=== PATIENT | female | born 1955 | race Caucasian/White ===

== ENCOUNTER 2020-03-01 15:45 | Outpatient (CLI) | payer MEDICARE, OTHER, SELFPAY ==
--- NOTE | ~2020-03-01 | MM_ITS ---
EXAMINATION: MM screening alexandria BI w dorene HISTORY: Screening TECHNIQUE: Craniocaudal and mediolateral oblique 3-D tomosynthesis images were obtained and synthetic 2-D images were generated. CAD analysis was submitted and interpreted. COMPARISON: Comparison to multiple prior studies sequentially, with oldest reviewed study dated 02/03. BREAST PARENCHYMAL COMPOSITION: The breasts are heterogeneously dense, which may obscure small masses . FINDINGS: There are surgical changes in the left breast, consistent with lumpectomy. There is no mamm ographic evidence for malignancy in the right breast. There is focal asymmetry at the lumpectomy site in the upper outer quadrant of the left breast, not definitely see on prior study. IMPRESSION: 1. Focal left breast asymmetry. 2. Additional mammographic views and possible breast ultrasound are recommended. BI-RADS Category 0: Incomplete: Needs additional imaging evaluation. Reviewed, dictated and finalized at location A. IMPRESSION: 1. Focal left breast asymmetry. 2. Additional mammographic views and possible breast ultrasound are recommended . BI-RADS Category 0: Incomplete: Needs additional imaging evaluation.
== END 2020-03-01 15:46 | disposition home or self-care (01) ==
LOC: ANHIMG 15:50
PROVIDERS: PCP Internal Medicine; Visit Provider Internal Medicine Medical Oncology
DX: Z12.31 Encounter for screening mammogram for malignant neoplasm of breast (principal); R92.8 Other abnormal and inconclusive findings on diagnostic imaging of breast
CPT/HCPCS: 77063; 77067

== ENCOUNTER 2020-04-03 09:48 | Outpatient (CLI) | payer MEDICARE, OTHER, SELFPAY ==
--- NOTE | ~2020-04-03 | MMUS_ITS ---
EXAMINATION: MM diagnostic mammo unilat LT, US breast LT limited HISTORY: History of breast cancer. Follow-up breast asymmetry. TECHNIQUE: Additional 3-D tomosynthesis images of the left breast were performed and synthetic 2-D im ages were generated. CAD analysis was submitted and interpreted. High resolution left breast ultrasou nd was performed. COMPARISON: 03/01/2020 BREAST PARENCHYMAL COMPOSITION: The breasts are heterogenously dense, which may obscure small masses. FINDINGS: MAMMOGRAPHIC FINDINGS: There are no suspicious masses, calcifications or architectural distortion in the left breast to sugg est malignancy. The area of asymmetry noted on prior examination is less apparent with spot compressi on views. ULTRASOUND: Limited left breast ultrasound: There is heterogeneous echogenic soft tissue in the area of scarring from previous surgery with poste rior shadowing. No discrete mass identified. IMPRESSION: 1. No evidence for malignancy in the left breast. Postsurgical scarring without significant change al lowing for differences of technique. 2. Routine yearly screening mammogram and regular clinical breast examination are recommended. BI-RADS Category 2: Benign finding(s). Reviewed, dictated and finalized at location A. IMPRESSION: 1. No evidence for malignancy in the left breast. Postsurgical scarring without significant change allowing for differences of technique. 2. Routine yearly screening mammogram and regular clinical breast examination a re recommended. BI-RADS Category 2: Benign finding(s).
== END 2020-04-03 09:49 | disposition home or self-care (01) ==
LOC: ANHIMG 09:51
PROVIDERS: PCP Internal Medicine; Visit Provider Obstetrics & Gynecology
DX: R92.8 Other abnormal and inconclusive findings on diagnostic imaging of breast (principal)
CPT/HCPCS: 76642; 77065

== ENCOUNTER 2020-04-10 09:30 | Outpatient (CLI) | payer MEDICARE, OTHER, SELFPAY ==
--- NOTE | ~2020-04-10 | CT_ITS ---
EXAMINATION: CT lung screening DATE: 04/10/2020 10:00 INDICATION: History of nicotine dependence TECHNIQUE: Computed tomography (CT) of the chest was performed without intravenous contrast. The dose -length product was 55.69 mGy-cm. Automated exposure control and iterative reconstruction technique w ere employed. COMPARISON: CT dated 04/16/2019 FINDINGS: Heart size normal. No thoracic lymphadenopathy. There are small hypodense lesions of the th yroid gland, largest measuring approximately 11 mm, unchanged. No significant pleural or pericardial effusion. There are calcifications of the pancreas, consistent with chronic pancreatitis. There are s urgical changes of left axillary lymph node dissection. There are stable coarse reticular opacities o f the left upper lobe anteriorly, possibly from previous radiation therapy. There is a 3 mm right upp er lobe nodule, image 30. There is a 2-3 mm right lower lobe nodule, image 66. There is a stable 4 mm left lower lobe nodule, image 67. No new pulmonary nodules or masses. There is atherosclerosis of th e aorta and coronary arteries. Stable superior endplate compression deformity of L2. IMPRESSION: 1. Lung-RADS category 2: Benign appearance or behavior. Continue annual screening with noncontrast lo w-dose chest CT in 12 months. Reviewed, dictated and finalized at location B. IMPRESSION: 1. Lung-RADS category 2: Benign appearance or behavior. Continue annual screeni ng with noncontrast low-dose chest CT in 12 months.
== END 2020-04-10 09:31 | disposition home or self-care (01) ==
PROVIDERS: PCP Internal Medicine; Visit Provider Internal Medicine
DX: Z12.2 Encounter for screening for malignant neoplasm of respiratory organs (principal); Z87.891 Personal history of nicotine dependence
CPT/HCPCS: G0297

== ENCOUNTER 2020-04-14 09:08 | Outpatient (CLI) | payer MEDICARE, OTHER, SELFPAY ==
[2020-04-14 09:35] LABS: Basophils Absolute Auto 0.1 K/mm3 (0.0-0.1); Basophils Percent Auto 0.8 % (0.2-1.2); Eosinophils Absolute Auto 0.1 K/mm3 (0-0.3); Eosinophils Percent Auto 0.8 % (0-4.4); Hematocrit 42.6 % (37.0-47.0); Hemoglobin 13.9 g/dL (12.0-15.0); Immature Granulocyte Absolute 0.03 K/mm3 (0.00-0.031); Immature Granulocyte Percent A 0.4 % (0-0.5); Lymphocytes Absolute Auto 1.95 K/mm3 (0.9-3.2); Lymphocytes Percent Auto 26.5 % (18.3-44.2); Mean Corpuscular HGB Conc 32.6 g/dl (32-36); Mean Corpuscular Hemoglobin 31.3 pg (26-34); Mean Corpuscular Volume 95.9 fl (80-100); Mean Platelet Volume 10.8 fl (7.4-10.4); Monocytes Absolute Auto 0.7 K/mm3 (0.1-0.6); Neutrophils Absolute Auto 4.5 K/mm3 (1.3-6.7); Neutrophils Percent Auto 61.5 % (45.5-73.1); Platelet Count Result 279 k/mm3 (150-375); Red Blood Count 4.44 M/mm3 (4.2-5.4); White Blood Count 7.4 K/mm3 (4.5-10.0)
[2020-04-14 09:46] LABS: Hemoglobin A1C 5.5 % (<5.7)
[2020-04-14 09:48] LABS: Alanine Aminotransferase 16 U/L (4-35); Albumin Level 4.3 g/dL (3.5-5.1); Alkaline Phosphatase 69 U/L (38-126); Anion Gap 4 mmol/L (8-16); Aspartate Amino Transferase 29 U/L (14-36); Bilirubin,Total 0.5 mg/dL (0.2-1.3); Blood Urea Nitrogen 18 mg/dL (7-17); Calcium 9.7 mg/dL (8.4-10.2); Carbon Dioxide 31 mmol/L (22-30); Chloride 106 mmol/L (98-107); Cholesterol 134 mg/dL (0-200); Estimated Glomerular Filt Rate > 60; Glucose 95 mg/dL (65-105); HDL Direct 49 mg/dL; Potassium 4.3 mmol/L (3.4-5.0); Sodium 141 mmol/L (137-145); Triglycerides 64 mg/dL (<150)
[2020-04-14 09:59] LABS: LDL Cholesterol Direct 59 mg/dL
[2020-04-14 10:08] LABS: Creatinine Urine 58.8 mg/dL
[2020-04-14 10:37] LABS: MALB Creatinine Ratio < 10.2 mg/g (0-30); Microalbumin Urine Random < 6.0 mg/L (0-16.7)
== END 2020-04-14 09:09 | disposition home or self-care (01) ==
LOC: ANHLAB 09:12
PROVIDERS: PCP Internal Medicine; Visit Provider Internal Medicine
DX: R73.01 Impaired fasting glucose (principal); I10 Essential (primary) hypertension; M81.0 Age-related osteoporosis without current pathological fracture; E78.2 Mixed hyperlipidemia; I25.10 Atherosclerotic heart disease of native coronary artery without angina pectoris
CPT/HCPCS: 36415; 80053; 80061; 82043; 83036; 84443; 85025

== ENCOUNTER 2021-01-31 07:52 | Outpatient (CLI) | payer MEDICARE, OTHER, SELFPAY ==
[2021-01-31 08:19] LABS: Basophils Absolute Auto 0.1 K/mm3 (0.0-0.1); Basophils Percent Auto 0.6 % (0.2-1.2); Eosinophils Absolute Auto 0.1 K/mm3 (0-0.3); Eosinophils Percent Auto 1.3 % (0-4.4); Hematocrit 42.7 % (37.0-47.0); Hemoglobin 13.7 g/dL (12.0-15.0); Immature Granulocyte Absolute 0.03 K/mm3 (0.00-0.031); Immature Granulocyte Percent A 0.4 % (0-0.5); Lymphocytes Absolute Auto 2.11 K/mm3 (0.9-3.2); Lymphocytes Percent Auto 27.1 % (18.3-44.2); Mean Corpuscular HGB Conc 32.1 g/dl (32-36); Mean Corpuscular Hemoglobin 30.6 pg (26-34); Mean Corpuscular Volume 95.5 fl (80-100); Mean Platelet Volume 10.9 fl (7.4-10.4); Monocytes Absolute Auto 0.8 K/mm3 (0.1-0.6); Monocytes Percent Auto 10.8 % (2.6-8.5); Neutrophils Absolute Auto 4.7 K/mm3 (1.3-6.7); Neutrophils Percent Auto 59.8 % (45.5-73.1); Platelet Count Result 230 k/mm3 (150-375); Red Blood Count 4.47 M/mm3 (4.2-5.4); Red Cell Distribution Width 13.9 % (11.5-14.5); White Blood Count 7.8 K/mm3 (4.5-10.0)
[2021-01-31 08:34] LABS: Alanine Aminotransferase 20 U/L (4-35); Albumin Level 4.1 g/dL (3.5-5.1); Alkaline Phosphatase 69 U/L (38-126); Anion Gap 6 mmol/L (8-16); Aspartate Amino Transferase 30 U/L (14-36); Bilirubin,Total 0.2 mg/dL (0.2-1.3); Blood Urea Nitrogen 19 mg/dL (7-17); Calcium 9.5 mg/dL (8.4-10.2); Carbon Dioxide 27 mmol/L (22-30); Chloride 103 mmol/L (98-107); Estimated Glomerular Filt Rate > 60; Glucose 100 mg/dL (65-110); Potassium 4.1 mmol/L (3.4-5.0); Sodium 136 mmol/L (137-145)
[2021-01-31 09:26] LABS: Hemoglobin A1C 5.9 % (<5.7)
[2021-01-31 09:31] LABS: Creatinine Urine 69.5 mg/dL
[2021-01-31 09:36] LABS: MALB Creatinine Ratio 11.4 mg/g (0-30); Microalbumin Urine Random 7.9 mg/L (0-16.7)
[2021-01-31 10:44] LABS: Vitamin D 25 Hydroxy 52.2 ng/mL
== END 2021-01-31 07:53 | disposition home or self-care (01) ==
PROVIDERS: PCP Internal Medicine; Visit Provider Internal Medicine
DX: E55.9 Vitamin D deficiency, unspecified (principal); I10 Essential (primary) hypertension; M81.0 Age-related osteoporosis without current pathological fracture; Z72.0 Tobacco use; R73.01 Impaired fasting glucose; E78.2 Mixed hyperlipidemia
CPT/HCPCS: 36415; 80053; 82043; 82306; 83036; 84443; 85025

== ENCOUNTER 2021-04-07 07:13 | Outpatient (CLI) | payer MEDICARE, SELFPAY ==
--- NOTE | ~2021-04-07 | MM_ITS ---
EXAMINATION: MM screening [place]ria BI w dorene HISTORY: Screening mammogram TECHNIQUE: Craniocaudal and mediolateral oblique 3-D tomosynthesis images were obtained and synthetic 2-D images were generated. CAD analysis was submitted and interpreted. COMPARISON: 04/03/2020 diagnostic left mammogram and limited left breast ultrasound 03/01 bilateral digital screening mammogram 02/15/2019 diagnostic left mammogram and limited left breast ultrasound 02/09/2019, 02/05/2018 bilateral digital screening mammogram examinations BREAST PARENCHYMAL COMPOSITION: The breasts are heterogeneously dense, which may obscure small masses . FINDINGS: There is stable architectural distortion, retraction and surgical clip in the upper mid to outer left breast consistent with history of prior partial left mastectomy for breast cancer. There is no evidence of suspicious mass, calcification, or architectural distortion to suggest malign danya in either breast. There has been no suspicious interval change. IMPRESSION: 1. No mammographic evidence of malignancy. 2. Recommend routine screening mammography in one year. BI-RADS Category 2: Benign finding(s). Reviewed, dictated and finalized at location A.
== END 2021-04-07 07:14 | disposition home or self-care (01) ==
LOC: ANHIMG 07:14
PROVIDERS: PCP Internal Medicine; Visit Provider Internal Medicine Medical Oncology
DX: Z12.31 Encounter for screening mammogram for malignant neoplasm of breast (principal)
CPT/HCPCS: 77063; 77067

== ENCOUNTER 2021-04-19 14:45 | Outpatient (CLI) | payer MEDICARE, OTHER, SELFPAY ==
--- NOTE | ~2021-04-19 | CT_ITS ---
EXAMINATION:CT lung screening DATE: 04/19/2021 15:03 INDICATION: Personal history of tobacco dependence. Current smoker. TECHNIQUE: Computed tomography (CT) of the chest was performed without intravenous contrast. Automate d exposure control and iterative reconstruction technique were employed. The dose-length product (DLP ) was 62.54 mGy-cm. COMPARISON: Chest CT 04/10/2020 FINDINGS: There is mild scarring at the lung apices. There is peripheral radiation fibrosis in almas lateral aspect of left lung. There are mild groundglass opacities in the inferior lungs with septal t hickening. There is mild bronchiectasis in right middle lobe. A calcified left lung nodule is consist ent with old granulomatous disease. Again seen are a few nodules in the lungs measuring up to 4 mm in left lower lobe. No pleural effusion. There are surgical clips in left axilla. There are changes of lumpectomy in left breast. The heart size is normal. No pericardial effusion. There are coronary melinda ry calcifications. There is a 12 mm nodule in left thyroid lobe, likely not clinically significant. T here are calcifications of the pancreas, consistent with chronic pancreatitis. There is mild thoracic spondylosis. IMPRESSION: 1. Lung-RADS category 2: Benign appearance or behavior. Continue annual screening with noncontrast lo w-dose chest CT in 12 months. Reviewed, dictated and finalized at location A. IMPRESSION: 1. Lung-RADS category 2: Benign appearance or behavior. Continue annual screeni ng with noncontrast low-dose chest CT in 12 months.
== END 2021-04-19 14:46 | disposition home or self-care (01) ==
LOC: ANHIMG 14:50
PROVIDERS: PCP Internal Medicine; Visit Provider Internal Medicine
DX: Z87.891 Personal history of nicotine dependence (principal)
CPT/HCPCS: 71271; 77080

== ENCOUNTER 2021-04-19 16:42 | Outpatient (CLI) | payer MEDICARE, OTHER, SELFPAY ==
--- NOTE | ~2021-04-19 | DEXA_ITS ---
Bone Density Report Name: Digna Nolan Age: 66 Sex: Female Ethnicity: White Date of : 1955 Indication: postmenopausal osteoporosis; monitoring treatment; height loss; cancer; Referring Provider: Gaston, Kaveh Stafford Study: Bone densitometry was performed. Exam Date: April 19, 2021 Accession number: [id number] Bone Density: Region BMD T-score Z-score Classification AP Spine (L1-L4) 0.725 -2.9 -1.0 Osteoporosis Femoral Neck (Left) 0.558 -2.6 -1.0 Osteoporosis Total Hip (Left) 0.735 -1.7 -0.4 Osteopenia Total Hip Bilateral Avg 0.723 -1.8 -0.5 Osteopenia Femoral Neck (Right) 0.520 -3.0 -1.3 Osteoporosis Total Hip (Right) 0.709 -1.9 -0.6 Osteopenia World Health Organization criteria for BMD impression classify patients as: Normal (T-score at or above -1.0), Osteopenia (T-score between -1.0 and -2.5), or Osteoporosis (T-score at or below -2.5). 10-year Fracture Risk: FRAX not reported because: Some T-score for Spine Total or Hip Total or Femoral Neck at or below -2.5 Treated for osteoporosis Previous Exams: Region Exam Age BMD T-score BMD Change BMD Change Date g/cm2 vs Baseline vs Previous AP Spine(L1-L4) 04/19/2021 66 0.725 -2.9 -0.068(-8.5%)# 0.005(0.7%) 03/12/2019 63 0.720 -3.0 -0.073(-9.1%)# 0.036(5.2%)* 11/26/2016 61 0.685 -3.3 -0.108(-13.6%) -0.015(-2.2%) 11/19/2014 59 0.700 -3.2 -0.093(-11.7%) -0.063(-8.3%)# 03/25/2009 54 0.763 -2.6 -0.030(-3.7%)* -0.030(-3.7%)* 02/23/2005 49 0.793 -2.3 Total Hip(Left) 04/19/2021 66 0.735 -1.7 -0.076(-9.3%)# 0.044(6.4%)* 03/12/2019 63 0.691 -2.1 -0.120(-14.8%) -0.002(-0.3%) 11/26/2016 61 0.693 -2.0 -0.118(-14.6%) -0.006(-0.8%) 11/19/2014 59 0.699 -2.0 -0.113(-13.9%) -0.101(-12.7%) 03/25/2009 54 0.800 -1.2 -0.011(-1.4%) -0.011(-1.4%) 02/23/2005 49 0.811 -1.1 Total Hip(Right) 04/19/2021 66 0.709 -1.9 -0.113(-13.8%) -0.008(-1.1%) 03/12/2019 63 0.717 -1.8 -0.105(-12.8%) 0.005(0.7%) 11/26/2016 61 0.711 -1.9 -0.111(-13.5%) 0.000(0.0%) 11/19/2014 59 0.711 -1.9 -0.111(-13.5%) -0.118(-14.2%) 03/25/2009 54 0.829 -0.9 0.007(0.9%) 0.007(0.9%) 02/23/2005 49 0.822 -1.0 *Denotes significance at 95% confidence level, LSC for AP Spine = 0.022 g/cm2, LSC for Total Hip = 0.027 g/cm2 Clinical Information Provided by Patient: Smokes Is being treated for osteoporosis Has used the following medications: Calcium Has the following medical conditions: Cancer
== END 2021-04-19 16:43 | disposition home or self-care (01) ==
PROVIDERS: PCP Internal Medicine; Visit Provider Internal Medicine Medical Oncology
DX: C50.212 Malignant neoplasm of upper-inner quadrant of left female breast (principal); Z17.0 Estrogen receptor positive status [ER+]; Z79.811 Long term (current) use of aromatase inhibitors; M81.0 Age-related osteoporosis without current pathological fracture; M85.852 Other specified disorders of bone density and structure, left thigh; M85.851 Other specified disorders of bone density and structure, right thigh
CPT/HCPCS: 77080

== ENCOUNTER 2021-09-19 09:01 | Outpatient (CLI) | payer MEDICARE, OTHER, SELFPAY ==
[2021-09-19 09:50] LABS: Alanine Aminotransferase 20 U/L (4-35); Albumin Level 4.1 g/dL (3.5-5.1); Alkaline Phosphatase 77 U/L (38-126); Anion Gap 5 mmol/L (8-16); Aspartate Amino Transferase 35 U/L (14-36); Bilirubin,Total 0.2 mg/dL (0.2-1.3); Blood Urea Nitrogen 15 mg/dL (7-17); Calcium 8.8 mg/dL (8.4-10.2); Carbon Dioxide 26 mmol/L (22-30); Chloride 108 mmol/L (98-107); Cholesterol 128 mg/dL (0-200); Estimated Glomerular Filt Rate > 60; Glucose 96 mg/dL (65-110); HDL Direct 41 mg/dL; Potassium 4.1 mmol/L (3.4-5.0); Sodium 139 mmol/L (137-145); Triglycerides 78 mg/dL (<150)
[2021-09-19 10:01] LABS: LDL Cholesterol Direct 59 mg/dL
[2021-09-19 10:40] LABS: Creatinine Urine 18.1 mg/dL
[2021-09-19 10:55] LABS: Hemoglobin A1C 5.5 % (<5.7)
[2021-09-19 11:00] LABS: Microalbumin Urine Random < 6.0 mg/L (0-16.7)
== END 2021-09-19 09:02 | disposition home or self-care (01) ==
LOC: ANHLAB 09:03
PROVIDERS: PCP Internal Medicine; Visit Provider Internal Medicine
DX: E78.2 Mixed hyperlipidemia (principal); F41.9 Anxiety disorder, unspecified; I10 Essential (primary) hypertension; R73.01 Impaired fasting glucose
CPT/HCPCS: 36415; 80053; 80061; 82043; 83036

== ENCOUNTER 2021-10-10 12:58 | Outpatient (CLI) | payer MEDICARE, OTHER, SELFPAY | END 2021-10-10 12:59 | disposition home or self-care (01) | LOC: ANHAUDIO 13:00 | PROVIDERS: PCP Internal Medicine; Visit Provider Nurse Practitioner | DX: H91.90 Unspecified hearing loss, unspecified ear (principal) | CPT/HCPCS: 92557; 92567 ==

== ENCOUNTER 2021-12-19 14:12 | Outpatient (CLI) | payer MEDICARE, OTHER, SELFPAY ==
[2021-12-19 16:36] LABS: Albumin Level 4.3 g/dL (3.5-5.1); Anion Gap 5 mmol/L (8-16); Blood Urea Nitrogen 9 mg/dL (7-17); Calcium 8.8 mg/dL (8.4-10.2); Carbon Dioxide 28 mmol/L (22-30); Chloride 109 mmol/L (98-107); Estimated Glomerular Filt Rate > 60; Glucose 116 mg/dL (65-110); Phosphorus 2.9 mg/dL (2.5-4.5); Potassium 3.6 mmol/L (3.4-5.0); Sodium 142 mmol/L (137-145)
== END 2021-12-19 14:13 | disposition home or self-care (01) ==
LOC: ANHWCLAB 14:16
PROVIDERS: PCP Internal Medicine; Visit Provider Internal Medicine Endocrinology, Diabetes & Metabolism
DX: M81.0 Age-related osteoporosis without current pathological fracture (principal); R79.89 Other specified abnormal findings of blood chemistry
CPT/HCPCS: 36415; 80069; 82306; 83970

== ENCOUNTER 2022-01-04 09:51 | Outpatient (CLI) | payer MEDICARE, OTHER, SELFPAY ==
[2022-01-04 11:40] LABS: Creatinine Urine 31.8 mg/dL
[2022-01-04 12:01] LABS: Creatinine 24 Hour Urine 0.7 gm/24 (0.8-1.8); Total Volume 24 Hour Urine 2400 ml
[2022-01-10 19:20] LABS: Total Volume 2400 mL; Urine Calcium 3.6 mg/dL
== END 2022-01-04 09:52 | disposition home or self-care (01) ==
PROVIDERS: PCP Internal Medicine; Visit Provider Internal Medicine Endocrinology, Diabetes & Metabolism
DX: M81.0 Age-related osteoporosis without current pathological fracture (principal); R79.89 Other specified abnormal findings of blood chemistry
CPT/HCPCS: 81050; 82340; 82570

== ENCOUNTER 2022-01-09 10:55 | Outpatient (CLI) | payer MEDICARE, OTHER, SELFPAY ==
--- NOTE | ~2022-01-09 | NM_ITS ---
EXAMINATION: NM parathyroid w imaging DATE: 01/09/2022 15:19 INDICATION: Hyperparathyroidism. TECHNIQUE: 19.4 mCi Tc99m sestamibi was administered intravenously. Anterior images of the neck were obtained immediately and at 2 hours. SPECT images of the neck were obtained. COMPARISON: Chest CT 04/19/2021 FINDINGS: There is no focus of persistent activity in the area of the thyroid or mediastinum to sugge st parathyroid adenoma. IMPRESSION: 1. No specific evidence of a parathyroid adenoma. Reviewed, dictated and finalized at location A.
== END 2022-01-09 10:56 | disposition home or self-care (01) ==
PROVIDERS: PCP Internal Medicine; Visit Provider Internal Medicine Endocrinology, Diabetes & Metabolism
DX: M81.0 Age-related osteoporosis without current pathological fracture (principal); R79.89 Other specified abnormal findings of blood chemistry
CPT/HCPCS: 78070; A9500

== ENCOUNTER 2022-03-05 08:10 | Outpatient (CLI) | payer MEDICARE, OTHER, SELFPAY ==
[2022-03-05 09:00] LABS: Hemoglobin A1C 5.6 % (<5.7)
[2022-03-05 09:02] LABS: Alanine Aminotransferase 21 U/L (6-35); Albumin Level 4.2 g/dL (3.5-5.1); Alkaline Phosphatase 128 U/L (38-126); Anion Gap 9 mmol/L (8-16); Aspartate Amino Transferase 30 U/L (14-36); Bilirubin,Total 0.5 mg/dL (0.2-1.3); Blood Urea Nitrogen 18 mg/dL (7-17); Calcium 9.2 mg/dL (8.4-10.2); Carbon Dioxide 24 mmol/L (22-30); Chloride 109 mmol/L (98-107); Cholesterol 139 mg/dL (0-200); Estimated Glomerular Filt Rate > 60; Glucose 97 mg/dL (65-110); HDL Direct 49 mg/dL; Potassium 4.1 mmol/L (3.4-5.0); Sodium 142 mmol/L (137-145); Triglycerides 75 mg/dL (<150)
[2022-03-05 09:13] LABS: LDL Cholesterol Direct 60 mg/dL
[2022-03-05 09:14] LABS: Vitamin D 25 Hydroxy 53.4 ng/mL
== END 2022-03-05 08:11 | disposition home or self-care (01) ==
PROVIDERS: PCP Internal Medicine; Visit Provider Internal Medicine
DX: R73.01 Impaired fasting glucose (principal); I10 Essential (primary) hypertension; E78.5 Hyperlipidemia, unspecified; E55.9 Vitamin D deficiency, unspecified
CPT/HCPCS: 36415; 80053; 80061; 82306; 83036

== ENCOUNTER 2022-04-01 14:59 | Outpatient (CLI) | payer MEDICARE, OTHER, SELFPAY ==
--- NOTE | ~2022-04-01 | XR_ITS ---
EXAMINATION: XR foot LT min 3V DATE: 04/01/2022 15:20 INDICATION: Left foot pain, initial encounter TECHNIQUE: Dorsoplantar, lateral, and 2 oblique views of the left foot were obtained. COMPARISON: None. FINDINGS: There is an acute, traumatic, closed, comminuted fracture of the first distal phalanx. Open fracture is not excluded. No additional fracture is identified. The joint spaces are normal. IMPRESSION: 1. Comminuted fracture of the first distal phalanx, open fracture not excluded. Reviewed, dictated and finalized at location A.
== END 2022-04-01 15:00 | disposition home or self-care (01) ==
PROVIDERS: PCP Internal Medicine; Visit Provider Internal Medicine
DX: S92.422A Displaced fracture of distal phalanx of left great toe, initial encounter for closed fracture (principal); X58.XXXA Exposure to other specified factors, initial encounter
CPT/HCPCS: 73630; 96372; J3111

== ENCOUNTER 2022-06-01 13:10 | Outpatient (CLI) | payer MEDICARE, OTHER, SELFPAY ==
--- NOTE | ~2022-06-01 | MM_ITS ---
EXAMINATION: MM screening [place]ria BI w dorene HISTORY: Screening TECHNIQUE: Craniocaudal and mediolateral oblique 3-D tomosynthesis images were obtained and synthetic 2-D images were generated. CAD analysis was submitted and interpreted. COMPARISON: Comparison to multiple prior studies sequentially, with oldest reviewed study dated 02/05. BREAST PARENCHYMAL COMPOSITION: There are scattered areas of fibroglandular density. FINDINGS: There is no evidence of suspicious mass, calcification, or architectural distortion to sugg est malignancy in either breast. There has been no suspicious interval change. IMPRESSION: 1. No mammographic evidence of malignancy. 2. Recommend routine screening mammography in one year. BI-RADS Category 1: Negative Reviewed, dictated and finalized at location B. 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
== END 2022-06-01 13:11 | disposition home or self-care (01) ==
LOC: ANHIMG 13:23
PROVIDERS: PCP Internal Medicine; Visit Provider Internal Medicine
DX: Z12.31 Encounter for screening mammogram for malignant neoplasm of breast (principal)
CPT/HCPCS: 77063; 77067

== ENCOUNTER 2022-09-23 08:28 | Outpatient (CLI) | payer MEDICARE, OTHER, SELFPAY ==
[2022-09-23 09:01] LABS: Alanine Aminotransferase 23 U/L (6-35); Albumin Level 4.2 g/dL (3.5-5.1); Alkaline Phosphatase 83 U/L (38-126); Anion Gap 5 mmol/L (8-16); Aspartate Amino Transferase 29 U/L (14-36); Bilirubin,Total 0.7 mg/dL (0.2-1.3); Blood Urea Nitrogen 13 mg/dL (7-17); Calcium 8.8 mg/dL (8.4-10.2); Carbon Dioxide 27 mmol/L (22-30); Chloride 106 mmol/L (98-107); Cholesterol 134 mg/dL (0-200); Estimated Glomerular Filt Rate > 60; Glucose 97 mg/dL (65-110); HDL Direct 49 mg/dL; Hemoglobin A1C 5.5 % (<5.7); Potassium 4.3 mmol/L (3.4-5.0); Sodium 138 mmol/L (137-145); Triglycerides 66 mg/dL (<150)
[2022-09-23 09:12] LABS: LDL Cholesterol Direct 62 mg/dL
== END 2022-09-23 08:29 | disposition home or self-care (01) ==
PROVIDERS: PCP Internal Medicine; Visit Provider Nurse Practitioner
DX: E78.5 Hyperlipidemia, unspecified (principal); R73.01 Impaired fasting glucose
CPT/HCPCS: 36415; 80053; 80061; 83036

== ENCOUNTER 2022-11-22 13:40 | Outpatient (CLI) | payer MEDICARE, OTHER, SELFPAY ==
--- NOTE | ~2022-11-22 | DEXA_ITS ---
Bone Density Report Name: JASON HUNT Age: 67 Sex: Female Ethnicity: White Date of : 1955 Indication: postmenopausal osteoporosis; monitoring treatment; cancer; Referring Provider: RICKIE LIEBERMAN Study: Bone densitometry was performed. Exam Date: November 22, 2022 Accession number: [id number] Bone Density: Region BMD T-score Z-score Classification AP Spine(L1-L4) 0.836 -1.9 0.1 Osteopenia Femoral Neck (Left) 0.578 -2.4 -0.7 Osteopenia Total Hip (Left) 0.737 -1.7 -0.3 Osteopenia Femoral Neck (Right) 0.536 -2.8 -1.1 Osteoporosis Total Hip (Right) 0.719 -1.8 -0.4 Osteopenia Total Hip Mean 0.728 -1.8 -0.4 Osteopenia World Health Organization criteria for BMD impression classify patients as: Normal (T-score at or above -1.0), Osteopenia (T-score between -1.0 and -2.5), or Osteoporosis (T-score at or below -2.5). 10-year Fracture Risk: FRAX not reported because: Some T-score for Spine Total or Hip Total or Femoral Neck at or below -2.5 Treated for osteoporosis Previous Exams: Region Exam Age BMD T-score BMD Change BMD Change Date g/cm2 vs Baseline vs Previous AP Spine (L1-L4) 11/22/2022 67 0.836 -1.9 0.135 (19.3%)* 0.110 (15.2%)* 04/19/2021 66 0.725 -2.9 0.025 (3.6%)* 0.005 (0.7%) 03/12/2019 63 0.720 -3.0 0.020 (2.9%) 0.036 (5.2%)* 11/26/2016 61 0.685 -3.3 -0.015 (-2.2%) -0.015 (-2.2%) 11/19/2014 59 0.700 -3.2 Total Hip(Left) 11/22/2022 67 0.737 -1.7 0.038 (5.4%)* 0.001 (0.2%) 04/19/2021 66 0.735 -1.7 0.037 (5.3%)* 0.044 (6.4%)* 03/12/2019 63 0.691 -2.1 -0.008 (-1.1%) -0.002 (-0.3%) 11/26/2016 61 0.693 -2.0 -0.006 (-0.8%) -0.006 (-0.8%) 11/19/2014 59 0.699 -2.0 Total Hip(Right) 11/22/2022 67 0.719 -1.8 0.007 (1.0%) 0.010 (1.4%) 04/19/2021 66 0.709 -1.9 -0.002 (-0.3%) -0.008 (-1.1%) 03/12/2019 63 0.717 -1.8 0.006 (0.8%) 0.005 (0.7%) 11/26/2016 61 0.711 -1.9 0.000 (0.0%) 0.000 (0.0%) 11/19/2014 59 0.711 -1.9 *Denotes significance at 95% confidence level, LSC for AP Spine = 0.022 g/cm2, LSC for Total Hip = 0.027 g/cm2 Clinical Information Provided by Patient: Smokes Is being treated for osteoporosis Has used the following medications: Vitamin D, Calcium, evenity Has the following medical conditions: Cancer Patient maximum height was 60 Menopause Age: 52 Drinks caffeinated beverages Onset of menses at age 12 Number of children 1
== END 2022-11-22 13:41 | disposition home or self-care (01) ==
LOC: ANHIMG 13:44
PROVIDERS: PCP Family Medicine; Visit Provider Internal Medicine Endocrinology, Diabetes & Metabolism
DX: Z78.0 Asymptomatic menopausal state (principal); M81.0 Age-related osteoporosis without current pathological fracture; M85.88 Other specified disorders of bone density and structure, other site; M85.852 Other specified disorders of bone density and structure, left thigh; M85.851 Other specified disorders of bone density and structure, right thigh
CPT/HCPCS: 77080

== ENCOUNTER 2023-03-27 08:07 | Outpatient (CLI) | payer MEDICARE, OTHER, SELFPAY ==
[2023-03-27 09:14] LABS: Anion Gap 4 mmol/L (8-16); Blood Urea Nitrogen 15 mg/dL (7-17); Calcium 8.9 mg/dL (8.4-10.2); Carbon Dioxide 27 mmol/L (22-30); Chloride 109 mmol/L (98-107); Estimated Glomerular Filt Rate > 60; Glucose 92 mg/dL (65-110); Sodium 140 mmol/L (137-145)
[2023-03-27 09:24] LABS: Parathyroid Intact 67.2 pg/mL (7.5-53.5)
[2023-03-27 10:03] LABS: Vitamin D 25 Hydroxy 53.4 ng/mL
== END 2023-03-27 08:08 | disposition home or self-care (01) ==
PROVIDERS: PCP Family Medicine; Visit Provider Internal Medicine Endocrinology, Diabetes & Metabolism
DX: M81.0 Age-related osteoporosis without current pathological fracture (principal); R79.89 Other specified abnormal findings of blood chemistry
CPT/HCPCS: 36415; 80069; 82306; 83970

== ENCOUNTER 2023-04-02 12:28 | Outpatient (CLI) | payer MEDICARE, OTHER, SELFPAY ==
--- NOTE | ~2023-04-02 | CT_ITS ---
CT Scan of the Chest without Contrast: Clinical Indication: Lung cancer screening, personal history of nicotine dependence Technique: Contiguous sections were acquired throughout the chest without intravenous contrast. Dose reduction technique was used on this scan by utilizing automated exposure control and iterative recon struction technique. The dose-length product (DLP) was 68.28 mGy-cm. COMPARISON: 04/19/2021 and 04/10/2020 Findings: There is no evidence of any significant mediastinal, hilar or axillary lymphadenopathy. The mediastin al soft tissues appear normal. There is no evidence of pleural or pericardial effusion. Mild biapical scarring noted. There is stable post radiation change with associated minimal bronchiec tasis at the left upper lobe/lingula. 4 mm left lower lobe pulmonary nodule is present, unchanged. Mi ld reticulation is unchanged, with lower lobe predominance. Images through the upper abdomen reveal calcifications consistent with chronic pancreatitis. Impression: Lung RADS 2: Benign appearance. 12 month follow-up screening CT advised. Reviewed, dictated and finalized at location . Impression: Lung RADS 2: Benign appearance. 12 month follow-up screening CT advised.
== END 2023-04-02 12:29 | disposition home or self-care (01) ==
PROVIDERS: PCP Nurse Practitioner; Visit Provider Nurse Practitioner
DX: Z12.2 Encounter for screening for malignant neoplasm of respiratory organs (principal); Z87.891 Personal history of nicotine dependence
CPT/HCPCS: 71271

== ENCOUNTER 2023-04-24 12:57 | Outpatient (CLI) | payer MEDICARE, OTHER, SELFPAY ==
--- NOTE | ~2023-04-24 | US_ITS ---
US thyroid INDICATION: Nontoxic thyroid nodule TECHNIQUE: Real-time sonographic images of the thyroid gland were obtained. COMPARISON: No prior studies for comparison. FINDINGS: The right thyroid lobe measures 4.9 x 1.8 x 1.6 cm. The left thyroid lobe measures 5.2 x 1 .5 x 1.7 cm. There is normal echotexture and echogenicity throughout the thyroid gland. No discrete n odules identified. In the left lobe there is a complex heterogeneous relatively hyperechoic mass with internal vascularity measuring 1.7 cm. This mass is solid, hyperechoic, wider than tall, smoothly ma rginated without echogenic foci, TR 3. Normal vascular flow is present. IMPRESSION: 1. Solid 1.7 cm hyperechoic left thyroid nodule, TR 3. Recommend follow-up ultrasound in 12 months. Reviewed, dictated and finalized at location A. IMPRESSION: 1. Solid 1.7 cm hyperechoic left thyroid nodule, TR 3. Recommend follow-up ult rasound in 12 months.
== END 2023-04-24 12:58 | disposition home or self-care (01) ==
PROVIDERS: PCP Nurse Practitioner; Visit Provider Internal Medicine Endocrinology, Diabetes & Metabolism
DX: E04.1 Nontoxic single thyroid nodule (principal)
CPT/HCPCS: 76536

== ENCOUNTER 2023-09-27 08:07 | Outpatient (CLI) | payer MEDICARE, OTHER, SELFPAY ==
[2023-09-27 08:39] LABS: Alanine Aminotransferase 18 U/L (6-35); Albumin Level 4.1 g/dL (3.5-5.1); Alkaline Phosphatase 64 U/L (38-126); Anion Gap 3 mmol/L (4-12); Aspartate Amino Transferase 29 U/L (14-36); Bilirubin,Total 0.7 mg/dL (0.2-1.3); Blood Urea Nitrogen 15 mg/dL (7-17); Calcium 9.8 mg/dL (8.4-10.2); Carbon Dioxide 28 mmol/L (22-30); Chloride 108 mmol/L (98-107); Cholesterol 137 mg/dL (0-200); Estimated Glomerular Filt Rate > 60; Glucose 101 mg/dL (65-110); HDL Direct 48 mg/dL; Potassium 4.3 mmol/L (3.4-5.0); Sodium 139 mmol/L (137-145); Triglycerides 82 mg/dL (<150)
[2023-09-27 08:50] LABS: LDL Cholesterol Direct 69 mg/dL
[2023-09-27 08:54] LABS: Hemoglobin A1C 5.6 % (<5.7)
== END 2023-09-27 08:08 | disposition home or self-care (01) ==
LOC: ANHLAB 08:09
PROVIDERS: PCP Nurse Practitioner; Visit Provider Nurse Practitioner
DX: E78.5 Hyperlipidemia, unspecified (principal); R73.01 Impaired fasting glucose
CPT/HCPCS: 36415; 80053; 80061; 83036

== ENCOUNTER 2023-09-29 14:48 | Outpatient (CLI) | payer MEDICARE, OTHER, SELFPAY ==
--- NOTE | ~2023-09-29 | MM_ITS ---
EXAMINATION: MM screening [place] BI w dorene HISTORY: Screening mammogram TECHNIQUE: Craniocaudal and mediolateral oblique 3-D tomosynthesis images were obtained and synthetic 2-D images were generated. CAD analysis was submitted and interpreted. COMPARISON: 06/01/2022, 04/07/2021 bilateral screening mammogram examination BREAST PARENCHYMAL COMPOSITION: The breasts are heterogeneously dense, which may obscure small masses . FINDINGS: History of left partial mastectomy and radiation treatment for breast cancer. There is no evidence of interval suspicious mass, malignant calcification, or new architectural disto rtion to suggest malignancy in either breast. There has been no suspicious interval change. IMPRESSION: 1. Status post left partial mastectomy and radiotherapy for breast cancer. No mammographic evidence o f malignancy. 2. Recommend routine screening mammography in one year. BI-RADS Category 2: Benign finding(s). Reviewed, dictated and finalized at location B. IMPRESSION: 1. Status post left partial mastectomy and radiotherapy for breast cancer. No m ammographic evidence of malignancy. 2. Recommend routine screening mammography in one year. BI-RADS Category 2: Benign finding(s).
== END 2023-09-29 14:49 | disposition home or self-care (01) ==
LOC: ANHIMG 14:50
PROVIDERS: PCP Nurse Practitioner; Visit Provider Internal Medicine
DX: Z12.31 Encounter for screening mammogram for malignant neoplasm of breast (principal)
CPT/HCPCS: 77063; 77067

== ENCOUNTER 2023-12-22 13:46 | Outpatient (CLI) | payer MEDICARE, OTHER, SELFPAY ==
--- NOTE | ~2023-12-22 | DEXA_ITS ---
Bone Density Report Name: JASON HUNT Age: 68 Sex: Female Ethnicity: White Date of : 1955 Indication: osteopenia; monitoring treatment; cancer; Referring Provider: RICKIE LIEBERMAN Study: Bone densitometry was performed. Exam Date: December 22, 2023 Accession number: [id number] Bone Density: Region BMD T-score Z-score Classification AP Spine(L1-L4) 0.828 -2.0 0.1 Osteopenia Femoral Neck (Left) 0.596 -2.3 -0.5 Osteopenia Total Hip (Left) 0.821 -1.0 0.5 Normal Femoral Neck (Right) 0.598 -2.3 -0.5 Osteopenia Total Hip (Right) 0.833 -0.9 0.6 Normal Total Hip Mean 0.827 -1.0 0.6 Normal World Health Organization criteria for BMD impression classify patients as: Normal (T-score at or above -1.0), Osteopenia (T-score between -1.0 and -2.5), or Osteoporosis (T-score at or below -2.5). 10-year Fracture Risk: FRAX not reported because: Treated for osteoporosis Previous Exams: Region Exam Age BMD T-score BMD Change BMD Change Date g/cm2 vs Baseline vs Previous AP Spine (L1-L4) 12/22/2023 68 0.828 -2.0 0.127 (18.2%)* -0.008 (-0.9%) 11/22/2022 67 0.836 -1.9 0.135 (19.3%)* 0.110 (15.2%)* 04/19/2021 66 0.725 -2.9 0.025 (3.6%)* 0.005 (0.7%) 03/12/2019 63 0.720 -3.0 0.020 (2.9%) 0.036 (5.2%)* 11/26/2016 61 0.685 -3.3 -0.015 (-2.2%) -0.015 (-2.2%) 11/19/2014 59 0.700 -3.2 Total Hip(Left) 12/22/2023 68 0.821 -1.0 0.122 (17.5%)* 0.084 (11.5%)* 11/22/2022 67 0.737 -1.7 0.038 (5.4%)* 0.001 (0.2%) 04/19/2021 66 0.735 -1.7 0.037 (5.3%)* 0.044 (6.4%)* 03/12/2019 63 0.691 -2.1 -0.008 (-1.1%) -0.002 (-0.3%) 11/26/2016 61 0.693 -2.0 -0.006 (-0.8%) -0.006 (-0.8%) 11/19/2014 59 0.699 -2.0 Total Hip(Right) 12/22/2023 68 0.833 -0.9 0.121 (17.1%)* 0.114 (15.9%)* 11/22/2022 67 0.719 -1.8 0.007 (1.0%) 0.010 (1.4%) 04/19/2021 66 0.709 -1.9 -0.002 (-0.3%) -0.008 (-1.1%) 03/12/2019 63 0.717 -1.8 0.006 (0.8%) 0.005 (0.7%) 11/26/2016 61 0.711 -1.9 0.000 (0.0%) 0.000 (0.0%) 11/19/2014 59 0.711 -1.9 *Denotes significance at 95% confidence level, LSC for AP Spine = 0.022 g/cm2, LSC for Total Hip = 0.027 g/cm2 Clinical Information Provided by Patient: Smokes Is being treated for osteoporosis Has used the following medications: Vitamin D, Calcium, Evenity Has the following medical conditions: Cancer Patient maximum height was 60 Menopause Age: 52 Drinks caffeinated beverages Onset of menses at
== END 2023-12-22 13:47 | disposition home or self-care (01) ==
LOC: ANHIMG 13:47
PROVIDERS: PCP Nurse Practitioner; Visit Provider Internal Medicine Endocrinology, Diabetes & Metabolism
DX: M81.0 Age-related osteoporosis without current pathological fracture (principal); M85.88 Other specified disorders of bone density and structure, other site; M85.852 Other specified disorders of bone density and structure, left thigh; M85.851 Other specified disorders of bone density and structure, right thigh
CPT/HCPCS: 77080

== ENCOUNTER 2024-01-07 08:29 | Outpatient (CLI) | payer MEDICARE, OTHER, SELFPAY ==
[2024-01-07 09:50] LABS: Alanine Aminotransferase 21 U/L (6-35); Albumin Level 4.4 g/dL (3.5-5.1); Alkaline Phosphatase 67 U/L (38-126); Anion Gap 8 mmol/L (4-12); Aspartate Amino Transferase 32 U/L (14-36); Bilirubin,Total 0.9 mg/dL (0.2-1.3); Blood Urea Nitrogen 19 mg/dL (7-17); Calcium 9.1 mg/dL (8.4-10.2); Carbon Dioxide 25 mmol/L (22-30); Chloride 105 mmol/L (98-107); Cholesterol 123 mg/dL (0-200); Estimated Glomerular Filt Rate > 60; Glucose 92 mg/dL (65-110); HDL Direct 50 mg/dL; Potassium 4.1 mmol/L (3.4-5.0); Sodium 138 mmol/L (137-145); Triglycerides 77 mg/dL (<150)
[2024-01-07 09:53] LABS: Phosphorus 2.8 mg/dL (2.5-4.5)
[2024-01-07 10:01] LABS: LDL Cholesterol Direct 63 mg/dL; Parathyroid Intact 53.2 pg/mL (7.5-53.5)
[2024-01-07 10:29] LABS: Vitamin D 25 Hydroxy 56.2 ng/mL
== END 2024-01-07 08:30 | disposition home or self-care (01) ==
PROVIDERS: PCP Nurse Practitioner; Visit Provider Internal Medicine Endocrinology, Diabetes & Metabolism
DX: E55.9 Vitamin D deficiency, unspecified (principal); M81.0 Age-related osteoporosis without current pathological fracture; R79.89 Other specified abnormal findings of blood chemistry; E78.5 Hyperlipidemia, unspecified
CPT/HCPCS: 36415; 80053; 80061; 81050; 82306; 82340; 82570; 83970; 84100

== ENCOUNTER 2024-01-08 08:12 | Outpatient (CLI) | payer MEDICARE, OTHER, SELFPAY ==
[2024-01-08 09:01] LABS: Total Volume 24 Hour Urine 2150 ml
[2024-01-08 09:12] LABS: Creatinine 24 Hour Urine 0.8 gm/24 (0.8-1.8); Creatinine Urine 41.2 mg/dL
[2024-01-12 12:53] LABS: Total Volume 2150 mL
== END 2024-01-08 08:13 | disposition home or self-care (01) ==
LOC: ANHLAB 08:16
PROVIDERS: PCP Nurse Practitioner; Visit Provider Internal Medicine Endocrinology, Diabetes & Metabolism
DX: M81.0 Age-related osteoporosis without current pathological fracture (principal); R79.89 Other specified abnormal findings of blood chemistry
CPT/HCPCS: 81050; 82340; 82570

== ENCOUNTER 2024-04-26 13:06 | Outpatient (CLI) | payer MEDICARE, OTHER, SELFPAY ==
--- NOTE | ~2024-04-26 | US_ITS ---
EXAMINATION: US thyroid DATE: 04/26/2024 13:33 INDICATION: Nontoxic single thyroid nodule. TECHNIQUE: Multiple ultrasound images of the thyroid were obtained. COMPARISON: Ultrasound 04/24/2023 FINDINGS: The right thyroid lobe measures 3.7 x 1.6 x 1.6 cm. The left thyroid lobe measures 3.7 x 1.2 x 1.9 c m. In the right thyroid lobe, there is a 3 mm nodule. In the left thyroid lobe, there is a 17 mm anabel id, isoechoic, wider than tall nodule with smooth margin without echogenic foci (TI-RADS TR3), stable from 04/24/23. IMPRESSION: 1. Thyroid nodules. Thyroid ultrasound is recommended in 2 years. Reviewed, dictated and finalized at location A. 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
== END 2024-04-26 13:07 | disposition home or self-care (01) ==
PROVIDERS: PCP Nurse Practitioner; Visit Provider Internal Medicine Endocrinology, Diabetes & Metabolism
DX: E04.2 Nontoxic multinodular goiter (principal)
CPT/HCPCS: 76536

== ENCOUNTER 2024-12-16 14:31 | Outpatient (CLI) | payer MEDICARE, OTHER, SELFPAY ==
--- NOTE | ~2024-12-16 | MM_ITS ---
EXAMINATION: MM screening [place]ria BI w dorene HISTORY: Screening mammogram TECHNIQUE: Craniocaudal and mediolateral oblique 3-D tomosynthesis images were obtained and synthetic 2-D images were generated. CAD analysis was submitted and interpreted. COMPARISON: 09/29/2023, 06/01/2022 BREAST PARENCHYMAL COMPOSITION:Dense: The breasts are heterogeneously dense, which may obscure small masses. FINDINGS: Stable postoperative change at the upper, outer left breast. No suspicious mass, calcificat ion, or new architectural distortion are identified in either breast to suggest malignancy. There has been no suspicious interval change. IMPRESSION: No mammographic evidence of malignancy. Recommend routine screening mammography in one year. BI-RADS Category 2: Benign finding(s). Reviewed, dictated and finalized at location .
== END 2024-12-16 14:32 | disposition home or self-care (01) ==
LOC: ANHIMG 14:33
PROVIDERS: PCP Nurse Practitioner; Visit Provider Nurse Practitioner
DX: Z12.31 Encounter for screening mammogram for malignant neoplasm of breast (principal)
CPT/HCPCS: 77063; 77067

== ENCOUNTER 2024-12-23 13:52 | Outpatient (CLI) | payer MEDICARE, OTHER, SELFPAY ==
--- NOTE | ~2024-12-23 | DEXA_ITS ---
Bone Density Report Name: JASON HUNT Age: 69 Sex: Female Ethnicity: White Date of : 1955 Indication: osteopenia; monitoring treatment; height loss; cancer; secondary osteoporosis; Referring Provider: RICKIE LIEBERMAN Study: Bone densitometry was performed. Exam Date: December 23, 2024 Accession number: [id number] Bone Density: Region BMD T-score Z-score Classification AP Spine(L1-L4) 0.787 -2.4 -0.2 Osteopenia Femoral Neck (Left) 0.583 -2.4 -0.6 Osteopenia Total Hip (Left) 0.728 -1.8 -0.2 Osteopenia Femoral Neck (Right) 0.571 -2.5 -0.7 Osteoporosis Total Hip (Right) 0.739 -1.7 -0.1 Osteopenia Total Hip Mean 0.733 -1.8 -0.2 Osteopenia World Health Organization criteria for BMD impression classify patients as: Normal (T-score at or above -1.0), Osteopenia (T-score between -1.0 and -2.5), or Osteoporosis (T-score at or below -2.5). 10-year Fracture Risk: FRAX not reported because: Some T-score for Spine Total or Hip Total or Femoral Neck at or below -2.5 Treated for osteoporosis Previous Exams: Region Exam Age BMD T-score BMD Change BMD Change Date g/cm2 vs Baseline vs Previous AP Spine (L1-L4) 12/23/2024 69 0.787 -2.4 0.086 (12.4%)* -0.041 (-5.0%) 12/22/2023 68 0.828 -2.0 0.127 (18.2%)* -0.008 (-0.9%) 11/22/2022 67 0.836 -1.9 0.135 (19.3%)* 0.110 (15.2%)* 04/19/2021 66 0.725 -2.9 0.025 (3.6%)* 0.005 (0.7%) 03/12/2019 63 0.720 -3.0 0.020 (2.9%) 0.036 (5.2%)* 11/26/2016 61 0.685 -3.3 -0.015 (-2.2%) -0.015 (-2.2%) 11/19/2014 59 0.700 -3.2 Total Hip(Left) 12/23/2024 69 0.728 -1.8 0.029 (4.2%)* -0.093 (-11.4% 12/22/2023 68 0.821 -1.0 0.122 (17.5%)* 0.084 (11.5%)* 11/22/2022 67 0.737 -1.7 0.038 (5.4%)* 0.001 (0.2%) 04/19/2021 66 0.735 -1.7 0.037 (5.3%)* 0.044 (6.4%)* 03/12/2019 63 0.691 -2.1 -0.008 (-1.1%) -0.002 (-0.3%) 11/26/2016 61 0.693 -2.0 -0.006 (-0.8%) -0.006 (-0.8%) 11/19/2014 59 0.699 -2.0 Total Hip(Right) 12/23/2024 69 0.739 -1.7 0.028 (3.9%)* -0.094 (-11.3% 12/22/2023 68 0.833 -0.9 0.121 (17.1%)* 0.114 (15.9%)* 11/22/2022 67 0.719 -1.8 0.007 (1.0%) 0.010 (1.4%) 04/19/2021 66 0.709 -1.9 -0.002 (-0.3%) -0.008 (-1.1%) 03/12/2019 63 0.717 -1.8 0.006 (0.8%) 0.005 (0.7%) 11/26/2016 61 0.711 -1.9 0.000 (0.0%) 0.000 (0.0%) 11/19/2014 59 0.711 -1.9 *Denotes significance at 95% confidence level, LSC for AP Spine = 0.022 g/cm2, LSC for Total Hip = 0.027 g/cm2 Clinical Information Provided by Patient: Smokes Has secondary osteoporosis Is being treated for osteoporosis Has used the following medications: Vitamin D, Calcium, evenity Has the following medical conditions: Cancer Patient maximum height was 60 Menopause Age: 52 Drinks caffeinated beverages Onset of menses at age 12 Number of children 1 Impression: The patient has osteoporosis, based on the Right Femoral Neck T-score. The patient has risk factors, including: smoking. The BMD for the AP Spine (L1-L4) decreased, changing by -5.0% since the last DXA exam. The BMD for the Total Hip(Left) decreased, changing by -11.4% since the last DXA exam. The BMD for the Total Hip(Right) decreased, changing by -11.3% since the last DXA exam. Discussion: SIGNIFICANT BONE LOSS OBSERVED. Adherence to therapy (including calcium and vitamin D intake) should be assessed. If compliance is not a factor, review management and exclusion of secondary causes of bone loss. It is important to ask patients whether they are taking their medications and to encourage continued and appropriate compliance with their osteoporosis therapies to reduce fracture risk. It is also important to review their risk factors and encourage appropriate calcium and vitamin D intakes, exercise, fall prevention and other lifestyle measures. Follow-Up: Consider a repeat BMD and Vertebral Fracture Assessment (VFA) exam in 2 years or sooner if medically necessary, to reassess this patient's status. Reported by: ELIEZER on 12/23/2024 2:27:00 PM. Reviewed, dictated and finalized at location A.
--- OUTSIDE RECORDS SUMMARY | 2024-12-23 13:56 | XMS_ITS ---
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 [employer] Name Role Phone Kaveh Feldman MD Unavailable [phone] Deon Soria MD Primary Care Provider [phone] Active Problems Problem Noted Date Diagnosed Date Palpitations 12/16/2022 Bruit of left carotid artery 05/12/2018 Dizziness 05/12/2018 Other osteoporosis without current pathological fracture 04/03/2018 Tobacco abuse 11/03/2017 Coronary artery disease invo lving [place] coronary artery of [place] heart without angina pectoris 05/02/2017 S/P coronary artery stent placement 05/02/2017 Essential hypertension 05/02/[address] elevation myocardial infarction (S ZEYNEP) 02/13/2017 History of cardiac catheterization 01/03/2016 Overview (09/27/2016): Status post placement of stent in right coronary artery Malignant neoplasm of upper- inner quadrant of left breast in female, estrogen receptor positive 10/21/2014 Cancer Staging:Clinical stage from 03/14/2015:Stage IA(T1b, N0, M0) - Signed by Kaveh Feldmna MD on 2018 Overview (09/27/2016): Malignant neoplasm of left female breast, unspecified site of breast Current Treatment and Therapy Plans No current plan information found. Past Treatment and Therapy Plans Oncology Supportive Care Therapy Plan Plan Name Start Date Discontinue Date Treatment Medications Discontinue Reason Plan Provider ZOLEDRONIC ACID (RECLAST) INFUSION 8 09/02/2023 No medications scheduled. Automatic discontinuation of dormant plans Kaveh Feldman MD Resolved Problems Problem Noted Date Diagnosed Date Resolved Date Dyslipidemia 01/03/2016 05/12/2018 Overview (09/27/2016): Dyslipidemia
--- OUTSIDE RECORDS SUMMARY | 2024-12-23 13:56 | XMS_ITS | Clinical Summary ---
Author Organization [facility] Address [address] [place] [address] Care Team Providers Care Cloth Laminating Supervisor Name Role Phone Unavailable Primary Care Provider Unavailabl e Social History Tobacco Use Types Packs/Day Years Used Date Smoking Tobacco: Never Assessed Comments Unknown Sex and Gender Information Value Date Recorded Sex Assigned at Not on file Legal Sex Female 8:13 PM CDT Gender Identity Not on file Sexual Orientation Not on file Plan of Treatment Health Maintenance Due Date Last Done Comments Colorectal Cancer Screening Colonoscopy (10 Years) 1954 Hepatitis C 1972 DTaP, Tdap and Td Vaccines ( 1 - Tdap) 1973 Mammogram Screening 1994 Pneumococcal Vaccine: 50+ Ye ars (1 of 1 - PCV) 2004 Zoster Vaccines (1 of 2) 2004 Dexa Scan (General) 2019 COVID-19 Vaccine ( - 2023-2 5 season) 2024 RSV Immunization or 60+ Years (1 - 1-dose 75+ series) 2029 Meningococcal B Vaccine Aged Out No l onger eligible based on patient's age to complete this topic Meningococcal Vaccine Aged Out No maryl khai eligible based on patient's age to complete this topic RSV Immunizations Under 20 Months Aged Out No longer eligible based on patient's age to complete this topic
--- OUTSIDE RECORDS SUMMARY | 2024-12-23 13:56 | XMS_ITS | Continuity of Care Document ---
Author Organization [facility] Address [address] [place] [address] Phone Care Team Providers Care Gui Developer Name Role Phone Ene Medina Unavailable Unavailable Procedures Procedure Date Eye Exam & Treatment Refraction Progressive Lens, Polycarb Vision Svcs Frames Purchases Anti-reflective Coating Tax - Medical Eye Exam & Treatment Refraction Office/outpatient Visit, Est Refraction Post-op Follow-up Visit Post-op Follow-up Visit Post-op Follow-up Visit Remove Cataract, Insert Lens Eye Exam Established Pt IOLMaster Eye Exam, New Patient Refraction Advance Directives Directive Yes / No Effective Date File Name No Information Encounters Encounter Description Practice Location Reason(s) For Visit Diagnoses Date Provider Providers Copied on Encounter [facility], [address], [place], [place], [id number], [place] tel:[phone] [facility] No Information 0 Carol Luque. [address] , [address], [place], [address], [place]. tel:[phone] [facility], [address], [place], [place], [id number], [place] tel:[phone] [facility] No Information Dec-2 6-200 8 [facility] . [address], [address], [place], [place], [id number], [place]. tel:[phone] Referring Provider: Ene Colmenares, [address], [place], [place], [facility]. tel:[phone] sulting Provider: Nereyda Talbotalba, [address] [facility], [place], [place], [facility]. tel:[phone] [facility], [address] [place] [address] [address], [place], [place], [id number], [place] tel:[phone] [facility] No Information Dec-2 3-200 8 Carol Luque. [address] , [address], [place], [place], [facility], [place]. tel:[phone] Office/outpat ient Visit, Est [facility], [address] [place] [address] [address], [place], [place], [id number], [place] tel:[phone] [facility] No Information Dec-0 7-200 7 Carol Luque. [address] , [address], [place], [place], [facility], [place]. tel:[phone] [facility], [address] [place] [address] [address], [place], [place], [id number], [place] tel:[phone] [facility] No Information Sep-0 7-200 7 Carol Otero [address] , [address], [place], [place], [facility], [place]. tel:[phone] [facility], [address] [place] [address] [address], [place], [place], [id number], [place] tel:[phone] [facility] No Information Aug-1 7-200 7 Carol Otero [address] , [address], [place], [address], [place]. tel:[phone] [facility], [address] [place] [address] [address], [place], [place], [id number], tel:[phone] [facility] No Information 0 9-200 7 Felix OD Óscar. [address] , [address], [place], [facility], . tel:[phone] [facility], [address] [place] [address] [address], [place], [place], [id number], tel:[phone] [facility] No Information 0 8-200 7 Carol Luque. [address] [facility] [address] , [address], [place], [place], [facility], . tel:[phone] [facility], [address] [place] [address] [address], [place], [place], [id number], tel:[phone] [facility] No Information 0-200 7 Carol Luque. [address] [facility] [address] , [address], [place], [place], [facility], . tel:[phone] Referring Provider: Ene Colmenares, [address], [place], [facility]. tel:[phone] [facility], [address] [place] [address] [address], [place], [place], [id number], tel:[phone] [facility] No Information 2-200 7 Carol Luque. [facility] , [address], [place], [facility], . tel:[phone] Family History Family Member Type Diagnosis Age At Onset No Information Payers Payer name Insurance type Covered green party ID Arleth caceres(s) [facility] CI [id number] Social History Type Description Quantity Date Captured Comments Sex Female Smoking Status No Information Chief Complaint And Reason For Visit No Information Reason For Referral Reason For Referral No Information History Of Present Illness Encounter Date Complaint History Of Prese nt Illness No Information Functional Status Date Functional Assessmen t No Information Instructions Date Instruction Additional Infor mation No Information Assessments Type Assessment Date No Information Patient Care Teams Name Effective Dates (start - stop) Status Members No Information
--- OUTSIDE RECORDS SUMMARY | 2024-12-23 13:56 | XMS_ITS | Clinical Summary ---
Author Organization [facility] [address] Address [address] [place] [address] Care Team Providers Care Maintenance Aide Name Role Phone Kaveh Feldman MD Unavailable [phone] Deon Soria MD Primary Care Provider [phone] Allergies Active Allergy Reactions Criticality Noted Date Comments Erythromycin Nausea only Low 04/17/2017 Sulfa (Sulfonamide Antibiotics) Rash Medium Medications aspirin (ASPIR-81) 81 mg tablet take 1 tablet by oral route every day 0 0 01/11/2015 Active calcium carbonate-vitami n D3 (CALCIUM 500 + D, D3,) 500 mg(1,250mg) -125 unit per tablet 0 0 10/04/2016 Active vitamins A,C,S-edsv-rcpwp r [id number] ohpt-wz-zjhi capsule Take by mouth daily. Active nitroglycerin (NITROSTAT) 0.[address] ONE TABLET UNDER TONGUE NEEDED FOR CHEST PAIN EVERY 5 MINUTES. MAX 3 DOSES 25 tablet 8 02/26/2022 Active atorvastatin (LIPITOR) 40 mg tablet Take 1 tablet (40 mg total) by mouth daily 90 tablet 3 02/26/2023 Active lisinopriL (PRINIVIL,ZESTRI L) 40 mg tablet Take 1 tablet (40 mg total) by mouth daily 90 tablet 3 02/26/2023 Active amLODIPine (NORVASC) 5 mg tablet TAKE 1 TABLET(5 MG) BY MOUTH DAILY 90 tablet 2 08/28/2023 Active Active Problems Problem Noted Date Diagnosed Date Palpitations 12/16/2022 Bruit of left carotid artery 05/12/2018 Dizziness 05/12/2018 Other osteoporosis without current pathological fracture 04/03/2018 Tobacco abuse 11/03/2017 Coronary artery disease invo lving [place] coronary artery of [place] heart without angina pectoris 05/02/2017 S/P coronary [...] IA(T1b, N0, M0) - Signed by Kaveh Feldman MD on 2018 Overview (09/27/2016): Malignant neoplasm of left female breast, unspecified site of breast Resolved Problems Problem Noted Date Diagnosed Date Resolved Date Dyslipidemia 01/03/2016 05/12/2018 Overview (09/27/2016): Dyslipidemia Immunizations Immunization Administration Dates Next Due Influenza, Quadrivalent, Rec ombinant, Egg Free, Preservative Free, Intramuscular 04/17/2018 Influenza, Trivalent, High D ose, Split, Preservative Free, Intramuscular 05/28/2019 Pfizer SARS-CoV-2 Monovalent Vaccination (12+ Yrs) PURPLE 09/11/2020,08/18/2020 Medical History Medical History Date Comments Hypertension Hypertension Hx Other Medical infero posterio r ST elevation [place] Malignant neoplasm of upper- inner quadrant of left breast in female, estrogen receptor positive (HCC) 01/03/2016 Malignant neoplasm of left female breast, unspecified site of breast Family History Medical History Relation Name Comments Lung cancer Brother 2 Cancer, lung; C ause of : Cancer, lung Heart attack Father Myocardial infa rction; Cause of : Myocardial infarction Alzheimer's disease Mother Alzheime r's disease; Cause of : Alzheimer's disease Other Sister 2 Alive and well; Relation Name Status Comments Brother 1 (Age 56) Brother 2 Father (Age 58) Mother (Age 88) Sister 1 Alive Sister 2 Social History Tobacco Use Types Packs/Day Years Used Date Smoking Tobacco: Every Day Cigarettes 0.8 35 Smokeless Tobacco: Never Tobacco Cessation:Ready to Q uit: Yes Alcohol Use Standard Drinks/Week Comments Yes 1 (1 standard drink = 0.6 oz pur e alcohol) occassionally Personal Safety Answer Date Recorded Getting School Help Needed Not on file 08/16 Comments Unknown Sex and Gender Information Value Date Recorded Sex Assigned at Not on file 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 Gender Identity Not on file Sexual Orientation Not on file Obstetrics History Last Filed Vital Signs Vital Sign Reading Time Taken Comments Blood Pressure 118/66 02/24/2024 2:02 PM CDT Pulse 68 02/24/2024 2:02 PM CDT Temperature 37.2 C (98.9 F) 03/01/2021 2:48 PM CDT Respiratory Rate 16 03/01/2021 2:48 PM CDT Oxygen Saturation 98% 02/24/2024 2:02 PM CDT Inhaled Oxygen Concentration - - Weight 49.5 kg (109 lb 1.6 oz) 02/24/2024 2:02 P M CDT Height 152.4 cm (5') 02/24/2024 2:02 PM CDT Body Mass Index 21.31 02/24/2024 2:02 PM CDT Plan of Treatment Health Maintenance Due Date Last Done Comments Breast Cancer Screening-Mammogram 1954 Colon Cancer Screening-Colonoscopy 1954 Depression Screening 1954 Fall Risk Assessment 1954 Hepatitis C Screening 1954 Osteoporosis Screening-Bone Density Scan 1954 DTaP/Tdap/Td Vaccine (1 - Tdap) 1965 Hepatitis B Screening 1972 Pneumococcal vaccine 65+ (1 of 2 - PCV) 1973 Lung Cancer Screening 2004 Zoster Vaccine (1 of 2) 2004 Well Visit 65+ 2019 Covid-19 Vaccine ( - season) 2024, 08/18/2020 Influenza Vaccine (Season Ended) 2025 04/27/2021, 05/28/2019, 04/17/2018 Insurance [facility] MEDICARE [facility] MEDICARE [employer] Care Teams Maintenance Aide Relationship Specialty Start Date End Date Deon Soria MD PCP - General Family Practice 12/16/22 Kaveh Feldman MD Medical Oncologist/Filenet Architect Hematology and Oncology 03/16/18
--- OUTSIDE RECORDS SUMMARY | 2024-12-23 13:56 | XMS_ITS | Clinical Summary ---
Author Organization [facility] Address [address] [place] [address] Care Team Providers Care Overhead Cleaner Maintainer Name Role Phone Ruddy Ball MD Primary Care Provider [phone] Source Comments [facility],non-owned Affiliates and Associated Physician Practices is amultiple site organization consisting of ambulatory clinics and hospital sitesin [place], [place], [place] and [place]. This disclosure is being madepursuant to the Care Everywhere program and may not contain all information available regarding this patient. Last updated 18.[facility] Allergies Active Allergy Reactions Criticality Noted Date Comments Erythromycin 04/17/2017 Sulfa Drugs 04/17/2017 Medications * Be aware that medications may not be up to date on this document. Alwaysverify current medications with the patient. No known medications Active Problems No known active problems Immunizations Immunization Administration Dates Next Due FLU VACCINE QUAD IIV4 PF ID 04/20/2016 INFLUENZA VACCINE, HIGH-DOSE , QUADR. (FLUZONE HIGH-DOSE QUADRIVALENT; 65Y+), 0.7 ML (HD-IIV4) 04/04/2020,05/28/2019 INFLUENZA VACCINE, QUADR. (F LUZONE; FLULAVAL; FLUARIX; AFLURIA QUADRIVALENT; 6MO+), 0.5 ML (IIV4) 04/27/2021,04/17/2017 iNFLUENZA VACCINE, RECOM-HARRIS, QUADR. (FLUBLOCK QUADRIVALENT; 18Y+) (RIV4) 04/17/2018 Social History Tobacco Use Types Packs/Day Years Used Date Smoking Tobacco: Never Assessed Comments Unknown Sex and Gender Information Value Date Recorded Sex Assigned at Not on file Legal Sex Female 6:21 AM TOP FORMER Gender Identity Not on file Sexual Orientation Not on file Plan of Treatment Health Maintenance Due Date Last Done Comments BONE DENSITY TESTING 1955 COLOGUARD (AGES 45-75) - COLON CA SCREENING 1954 COLON MONITORING 1954 COLONOSCOPY - COLON CA SCREENING 1954 CT COLONOGRAPHY - COLON CA SCREENING 1955 Colorectal Cancer Screening 1954 FIT - COLON CA SCREENING 1954 FLEX SIG - COLON CA SCREENING 1954 LIPID TESTING 1954 MAMMOGRAM 1954 HEPATITIS C SCREENING 03/17/1972 DTAP/TDAP/TD VACCINES (1 - Tdap) 1973 PNEUMOCOCCAL VACCINE 50+ (1 of 1 - PCV) 2004 ZOSTER VACCINE (1 of 2) 2004 COVID-19 VACCINE (3 - season) 2024 09/11/2020, 08/18/2020 DEPRESSION SCREENING 06/23/2024 INFLUENZA VACCINE (Season Ended) 2025 04/27/2021, 04/04/2020, 05/28/2019, Additional history exists Respiratory Syncytial Virus (RSV) Vaccine Pt: or over 60 yrs (1 - 1-dose 75+ series) 2029 HEPATITIS B VACCINE Aged Out No longe r eligible based on patient's age to complete this topic HIB VACCINE Aged Out No longer eligi ble based on patient's age to complete this topic HPV VACCINE Aged Out No longer eligi ble based on patient's age to complete this topic MENINGOCOCCAL (Group B) VACCINE SHARED DECISION-MAKING Aged Out No longer eligible based on patient's age to complete this topic MENINGOCOCCAL GROUPS A/C/Y/W VACCINE Aged Out No longer eligible based on patient's age to complete this topic Insurance MEDICARE [facility] Care Teams Overhead Cleaner Maintainer Relationship Specialty Start Date End Date Ruddy Ball MD [address] [place] [address] PCP - General Internal Medicine 05/28/19
--- OUTSIDE RECORDS SUMMARY | 2024-12-23 13:56 | XMS_ITS | Referral Summary ---
Demographics Address [address] [place] [address] Home Phone Mobile Phone Home Phone Email Address [email or web address] Preferred Language Welsh Marital Status Mandaeism Affiliation Unknown Race White Ethnic Group Not or Lati no Author Organization [facility] [address] Address [address] [place] [address] Care Team Providers Care Retort Forker Name Role Phone Kaveh Feldman MD Unavailable [phone] Deon Soria MD Primary Care Provider [phone] Allergies Active Allergy Reactions Criticality Noted Date Comments Erythromycin Nausea only Low 04/17/2017 Sulfa (Sulfonamide Antibiotics) Rash Medium Medications aspirin (ASPIR-81) 81 mg tablet take 1 tablet by oral route every day 0 0 01/11/2015 Active calcium carbonate-vitami n D3 (CALCIUM 500 + D, D3,) 500 mg(1,250mg) -125 unit per tablet 0 0 10/04/2016 Active vitamins A,C,A-pvom-qosbo r [id number] mrcx-es-lbne capsule Take by mouth daily. 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
== END 2024-12-23 13:53 | disposition home or self-care (01) ==
LOC: ANHIMG 13:54
PROVIDERS: PCP Nurse Practitioner; Visit Provider Internal Medicine Endocrinology, Diabetes & Metabolism
DX: M81.0 Age-related osteoporosis without current pathological fracture (principal); M85.88 Other specified disorders of bone density and structure, other site; M85.852 Other specified disorders of bone density and structure, left thigh; M85.851 Other specified disorders of bone density and structure, right thigh
CPT/HCPCS: 77080

== ENCOUNTER 2024-12-30 14:49 | Outpatient (CLI) | payer MEDICARE, OTHER, SELFPAY ==
--- OUTSIDE RECORDS SUMMARY | 2024-12-30 14:53 | XMS_ITS | Continuity of Care Document ---
Author Organization [facility] Address [address] [place] [address] Phone Care Team Providers Care Color Adviser Name Role Phone Ene Medina Unavailable Unavailable [...] Diagnoses Date Provider Providers Copied on Encounter [facility], [address], [place], [place], [id number], [place] tel:[phone] [facility] No Information 0 Carol Luque. [address] , [address], [place], [address], [place]. tel:[phone] [facility], [address], [place], [place], [id number], [place] tel:[phone] [facility] No Information Dec-2 6-200 8 [employer] . [address] [facility], [address], [place], [place], [id number], [place]. tel:[phone] Referring Provider: Ene Colmenares, [address], [place], [place], [facility]. tel:[phone] sulting Provider: Nereyda Talbotalba, [address] [facility], [place] [address], [place], [facility]. tel:[phone] [facility], [address] [place] [address] [address], [place], [place], [id number], [place] tel:[phone] [facility] No Information Dec-2 3-200 8 Carol Luque. [address] , [address], [place], [facility], [place]. tel:[phone] Office/outpat ient Visit, Est [facility], [address] [place] [address] [address], [place], [place], [id number], [place] tel:[phone] [facility] No Information Dec-0 7-200 7 Carol Luque. [address] , [address], [place] [address], [facility], [place]. tel:[phone] [facility], [address] [place] [address] [address], [place], [place], [id number], [place] tel:[phone] [facility] No Information Sep-0 7-200 7 Carol Otero [address] , [address], [place], [facility], [place]. tel:[phone] [facility], [address] [place] [address] [address], [place], [place], [address], [place] tel:[phone] [facility] No Information Aug-1 7-200 7 Carol Otero [address] , [address], [place], [address], [place]. tel:[phone] [facility] Eye [facility], [address] [place] [address] [address], [place], [place], [id number], tel:[phone] [facility] No Information 0 9-200 7 Felix OD Óscar. [address] , [address], [place] [address], [facility], . tel:[phone] [facility], [address] [place] [address] [address], [place], [place], [id number], tel:[phone] [facility] No Information 0 8-200 7 Carol Luque. [address] [facility] , [address], [place] [address], [facility], . tel:[phone] [facility], [address] [place] [address] [address], [place], [place], [address], tel:[phone] [facility] No Information 0-200 7 Carol Luque. [address] [facility] , [address], [place] [address], [facility], . tel:[phone] Referring Provider: Ene Colmenares, [address], [place] [address], [facility]. tel:[phone] [facility], [address] [place] [address] [address], [place], [place], [id number], tel:[phone] [facility] No Information 2-200 7 Carol Luque. [facility] , [address], [place] [address], [facility], . tel:[phone] Family History Family Member Type Diagnosis Age At Onset No Information Payers Payer name Insurance type Covered constitution party ID Arleth caceres(s) [facility] CI [id number] Social History Type Description Quantity Date Captured [...]
--- OUTSIDE RECORDS SUMMARY | 2024-12-30 14:53 | XMS_ITS | Clinical Summary ---
Author Organization [facility] Address [address] [place] [address] Care Team Providers Care Manager Credit Risk Name Role Phone Unavailable Primary Care Provider [...] this topic Meningococcal Vaccine Aged Out No marly khai eligible based on patient's age to complete this topic RSV Immunizations Under 20 Months Aged Out No longer eligible based on patient's age to complete this topic
--- OUTSIDE RECORDS SUMMARY | 2024-12-30 14:53 | XMS_ITS | Clinical Summary ---
Author Organization [facility] Address [address] [place] [address] Care Team Providers Care Jewelry Sales Representative Name Role Phone Ruddy Ball MD Primary Care Provider [phone] Source Comments [facility],non-owned Affiliates and Associated Physician Practices is amultiple site organization consisting of ambulatory clinics and hospital sitesin [place], [place], [place] and [place]. This disclosure is being madepursuant to the Care Everywhere program and may not contain all information available regarding this patient. Last updated 18.[facility] Allergies Active Allergy Reactions Criticality Noted Date [...] on file Legal Sex Female 6:21 AM DIAMOND MOUNTER Gender Identity Not on file Sexual Orientation [...] 09/11/2020, 08/18/2020 DEPRESSION SCREENING 06/23/2024 INFLUENZA VACCINE (#1) 2025 , 04/04/2020, 05/28/2019, Additional history exists Respiratory Syncytial [...] age to complete this topic Insurance MEDICARE [facility] Care Teams Jewelry Sales Representative Relationship Specialty Start Date End Date Ruddy Ball MD [address] [place] [address] PCP - General Internal Medicine 05/28/19
--- OUTSIDE RECORDS SUMMARY | 2024-12-30 14:53 | XMS_ITS | Clinical Summary ---
Author Organization [facility] [address] Address [address] [place] [address] Care Team Providers Care Tank Crewmember Name Role Phone Kaveh Feldman MD Unavailable [phone] Deon Soria MD Primary Care Provider [phone] Allergies Active Allergy Reactions Criticality Noted Date Comments Erythromycin Nausea only Low 04/17/2017 Sulfa (Sulfonamide Antibiotics) Rash Medium Medications aspirin (ASPIR-81) 81 mg tablet take 1 tablet by oral route every day 0 0 01/11/2015 Active calcium carbonate-vitami n D3 (CALCIUM 500 + D, D3,) 500 mg(1,250mg) -125 unit per tablet 0 0 10/04/2016 Active vitamins A,C,E-lzap-mthzu r 14,320-226-200 rsew-lo-wpts capsule Take by mouth daily. 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
--- OUTSIDE RECORDS SUMMARY | 2024-12-30 14:53 | XMS_ITS ---
Demographics Address [address] [place] [address] Home Phone Mobile Phone Home Phone Email Address [email or web address] Preferred Language Finnish Marital Status Mormon Affiliation Unknown Race White Ethnic Group Not or Lati no Author Organization [facility] [address] Address [address] [place] [address] Care Team Providers Care Project Manager/Team Coach Name Role Phone Kaveh Feldman MD Unavailable [phone] Deon Soria MD Primary Care Provider [phone] Active Problems Problem Noted Date Diagnosed Date Palpitations 12/16/2022 Bruit of left carotid artery 05/12/2018 Dizziness 05/12/2018 Other osteoporosis without current pathological fracture 04/03/2018 Tobacco abuse 11/03/2017 Coronary artery disease invo lving [place] coronary artery of [place] heart without angina pectoris 05/02/2017 S/P coronary [...]
--- OUTSIDE RECORDS SUMMARY | 2024-12-30 14:53 | XMS_ITS | Referral Summary ---
Author Organization [facility] [address] Address [address] [place] [address] Care Team Providers Care Home Economist Name Role Phone Kaveh Feldman MD Unavailable [phone] Deon Soria MD Primary Care Provider [phone] Allergies Active Allergy Reactions Criticality Noted Date Comments Erythromycin Nausea only Low 04/17/2017 Sulfa (Sulfonamide Antibiotics) Rash Medium Medications aspirin (ASPIR-81) 81 mg tablet take 1 tablet by oral route every day 0 0 01/11/2015 Active calcium carbonate-vitami n D3 (CALCIUM 500 + D, D3,) 500 mg(1,250mg) -125 unit per tablet 0 0 10/04/2016 Active vitamins A,C,J-rluj-elits r 14,320-226-200 yint-gl-ruem capsule Take by mouth daily. 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 MEDICARE [facility] MEDICARE [facility] Care Teams Home Economist Relationship Specialty Start Date End Date Deon Soria MD PCP - General Family Practice 12/16/22 Kaveh Feldman MD Medical Oncologist/Building Consultant Hematology and Oncology 03/16/18
[2024-12-30 15:57] LABS: Parathyroid Intact 46.6 pg/mL (14.5-75.2)
[2024-12-30 16:13] LABS: Thyroid Stimulating Hormone 1.150 uIU/mL (0.465-4.680)
== END 2024-12-30 14:50 | disposition home or self-care (01) ==
PROVIDERS: PCP Nurse Practitioner; Visit Provider Internal Medicine Endocrinology, Diabetes & Metabolism
DX: R79.89 Other specified abnormal findings of blood chemistry (principal); E04.1 Nontoxic single thyroid nodule; E55.9 Vitamin D deficiency, unspecified; M81.0 Age-related osteoporosis without current pathological fracture
CPT/HCPCS: 36415; 82306; 83970; 84443

== ENCOUNTER 2025-04-15 09:53 | Outpatient (CLI) | payer MEDICARE, OTHER, SELFPAY ==
--- OUTSIDE RECORDS SUMMARY | 2025-04-15 10:12 | XMS_ITS ---
Demographics Address [address] [place] [address] Home Phone Mobile Phone Home Phone Email Address [email or web address] Preferred Language Telugu Marital Status Restorationist Affiliation Unknown Race White Ethnic Group Not or Lati no Author Organization [facility] [address] Address [address] [place] [address] Care Team Providers Care Kettle Girl Name Role Phone Kaveh Feldman MD Unavailable [phone] Deon Soria MD Primary Care Provider [phone] Active Problems Problem Noted Date Diagnosed Date Palpitations 12/16/2022 Bruit of left carotid artery 05/12/2018 Dizziness 05/12/2018 Other osteoporosis without current pathological fracture 04/03/2018 Tobacco abuse 11/03/2017 Coronary artery disease invo lving [place] coronary artery of [place] heart without angina pectoris 05/02/2017 S/P coronary [...]
--- OUTSIDE RECORDS SUMMARY | 2025-04-15 10:12 | XMS_ITS | Clinical Summary ---
Author Organization [facility] Address [address] [place] [address] Care Team Providers Care Tuck Pointer Helper Name Role Phone Unavailable Primary Care Provider [...] COVID-19 Vaccine ( - 2023-2 5 season) 2025 Influenza Adult (#1) 2025 RSV Immunization or 60+ Years (1 - 1-dose 75+ series) 2029 Hepatitis A Vaccines Aged Out No long er eligible based on patient's age to complete this topic Meningococcal B Vaccine Aged Out No l onger eligible based on patient's age to complete this topic Meningococcal Vaccine Aged Out No marly khai eligible based on patient's age to complete this topic RSV Immunizations Under 20 Months Aged Out No longer eligible based on patient's age to complete this topic
--- OUTSIDE RECORDS SUMMARY | 2025-04-15 10:12 | XMS_ITS | Clinical Summary ---
Author Organization [facility] [facility] Address [address] [place] [address] Care Team Providers Care Caterer'S Aide Name Role Phone Ruddy Ball MD Primary Care Provider [phone] Source Comments [facility] [employer],non-owned Affiliates and Associated Physician Practices is amultiple site organization consisting of ambulatory clinics and hospital sitesin [place], [place], [place] and [place]. This disclosure is being madepursuant to the Care Everywhere program and may not contain all information available regarding this patient. 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
--- OUTSIDE RECORDS SUMMARY | 2025-04-15 10:12 | XMS_ITS | Clinical Summary ---
Author Organization [facility] [address] Address [address] [place] [address] Care Team Providers Care Abstract Maker Name Role Phone Kaveh Feldman MD Unavailable [phone] Deon Soria MD Primary Care Provider [phone] Allergies Active Allergy Reactions Criticality Noted Date Comments Erythromycin Nausea only Low 04/17/2017 Sulfa (Sulfonamide Antibiotics) Rash Medium Medications aspirin (ASPIR-81) 81 mg tablet take 1 tablet by oral route every day 0 0 01/11/2015 Active calcium carbonate-vitami n D3 (CALCIUM 500 + D, D3,) 500 mg(1,250mg) -125 unit per tablet 0 0 10/04/2016 Active vitamins A,C,L-ppkc-amffu r 14,320-226-200 iqxm-cb-jhli capsule Take by mouth daily. Active nitroglycerin [...] abuse 11/03/2017 Coronary artery disease invo lving [place] coronary artery of [place] heart without angina pectoris 05/02/2017 S/P coronary [...] Date Dyslipidemia 01/03/2016 05/12/2018 Overview (09/27/2016): Dyslipidemia Encounters Date Type Department Care Team Description 02/24/2025 2:00 PM CDT Office Visit [facility] [address] [place] [address] Jaiden Chiang MD Coronary artery disease involving [place] coronary artery of [place] heart without angina pectoris (Primary Dx); S/P coronary artery stent placement from Last 3 Months Immunizations Immunization Administration Dates Next Due Influenza, Quadrivalent, Rec ombinant, Egg Free, Preservative Free, Intramuscular 04/17/2018 Influenza, Trivalent, High D ose, Split, Preservative Free, Intramuscular 05/28/2019 Pfizer SARS-CoV-2 Monovalent Vaccination (12+ Yrs) PURPLE 09/11/2020,08/18/2020 Medical History Medical History Date Comments Hypertension Hypertension Hx Other Medical infero posterio r ST elevation [place] Malignant neoplasm of upper- inner quadrant of [...] = 0.6 oz pur e alcohol) occassionally Comments Unknown Sex and Gender Information Value Date Recorded Sex Assigned at Not on file 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 Gender Identity Not on file Sexual Orientation Not on file Obstetrics History Last Filed Vital Signs Vital Sign Reading Time Taken Comments Blood Pressure 122/66 02/24/2025 1:54 PM CDT Pulse 60 02/24/2025 1:54 PM CDT Temperature 37.2 C (98.9 F) 03/01/2021 2:48 PM CDT Respiratory Rate 16 03/01/2021 2:48 PM CDT Oxygen Saturation 98% 02/24/2025 1:54 PM CDT Inhaled Oxygen Concentration - - Weight 49.5 kg (109 lb 3.2 oz) 02/24/2025 1:54 P M CDT Height 152.4 cm (5') 02/24/2025 1:54 PM CDT Body Mass Index 21.33 02/24/2025 1:54 PM CDT Plan of Treatment Health Maintenance [...] 2004 Well Visit 65+ 2019 Covid-19 Vaccine (4 - 2024-2 6 season) 2025 05/29/2021, 09/11/2020, 08/18/2020 Influenza Vaccine (#1) 2025 , 04/13/2021, 05/28/2019, Additional history exists Procedures Procedure Name Priority Date/Time Associated Diagnosis Comments POCT LIPID PANEL Routine 02/24/2025 8:00 AM CDT Coronary artery disease involving [place] coronary artery of [place] heart without angina pectoris from Last 3 Months Results * (ABNORMAL) POCT lipid panel (02/24/2025 8:00 AM CDT) Cholesterol, POC 99 <200 MG/DL Comment:<100 HDL, POC 15(A) >=40 mg/dL Comment:<15 Triglycerides, POC 138 <=149 mg/dL LDL Cholesterol POC 57 <=129 mg/dL Cholesterol Total, POC 99 30 - 199 mg/dL Comment:<100 Capillary blood 02/24/2025 8 :00 AM CDT Jaiden Chiang MD POINT OF CARE TEST ORDER PERNELL Final Result from Last 3 Months Insurance MEDICARE [facility] MEDICARE [facility] MEDICARE [facility] Care Teams Abstract Maker Relationship Specialty Start Date End Date Deon Soria MD PCP - General Family Practice 12/16/22 Kaveh Feldman MD Medical Oncologist/Credit Advisor Hematology and Oncology 03/16/18
[2025-04-15 10:35] LABS: Hematocrit 41.8 % (37.0-47.0); Hemoglobin 13.3 g/dL (12.0-15.0); Mean Corpuscular HGB Conc 31.8 g/dl (32-36); Mean Corpuscular Hemoglobin 30.6 pg (26-34); Mean Corpuscular Volume 96.1 fl (80-100); Platelet Count Result 277 k/mm3 (150-375); Red Blood Count 4.35 M/mm3 (4.2-5.4); White Blood Count 6.6 K/mm3 (4.5-10.0)
[2025-04-15 10:46] LABS: Hemoglobin A1C 5.6 % (<5.7)
[2025-04-15 11:03] LABS: Alanine Aminotransferase 21 U/L (6-35); Albumin Level 4.0 g/dL (3.5-5.1); Alkaline Phosphatase 77 U/L (38-126); Anion Gap 5 mmol/L (4-12); Aspartate Amino Transferase 38 U/L (14-36); Bilirubin,Total 0.7 mg/dL (0.2-1.3); Blood Urea Nitrogen 17 mg/dL (7-17); Calcium 9.3 mg/dL (8.4-10.2); Carbon Dioxide 26 mmol/L (22-30); Chloride 108 mmol/L (98-107); Cholesterol 134 mg/dL (0-200); Estimated Glomerular Filt Rate > 60; Glucose 99 mg/dL (65-110); HDL Direct 49 mg/dL; Potassium 4.2 mmol/L (3.4-5.0); Sodium 139 mmol/L (137-145); Total Protein 7.1 g/dL (6.3-8.2); Triglycerides 77 mg/dL (<150)
== END 2025-04-15 09:54 | disposition home or self-care (01) ==
PROVIDERS: PCP Nurse Practitioner; Visit Provider Nurse Practitioner
DX: E78.5 Hyperlipidemia, unspecified (principal); I10 Essential (primary) hypertension; R73.01 Impaired fasting glucose
CPT/HCPCS: 36415; 80053; 80061; 83036; 85027